=== PATIENT | female | born 1945 | race Caucasian/White ===

== ENCOUNTER 2019-03-17 18:17 | Emergency (ER) | payer MEDICARE, OTHER ==
[2019-03-17] MEDS ORDERED: HYDROcod/ACETAM 5/325 MG TABLET PO STA (18:43)
--- NOTE | 2019-03-17 18:44 | ED Physician Documentation ---
PD HPI LOWER EXT INJURY - Stated complaint Stated Complaint: RT KNEE PAIN - Chief complaint Chief Complaint: Ext Problem - History obtained from History obtained from: Patient - History of Present Illness PD HPI LOW EXT INJURY LOCATION: Other (73-year-old woman visiting from [place], she has a history of a knee problem but she does not remember which side. It was remote. This morning she got up and it felt like something was ripping in her knee and she has anterior and medial right knee pain radiating down to the calf and difficulty walking and flexing the knee. No specific injury.) Review of Systems Constitutional: reports: Reviewed and negative Cardiac: reports: Reviewed and negative Respiratory: reports: Reviewed and negative PD PAST MEDICAL HISTORY - Present Medications Home Medications: Ambulatory Orders Medication Instructions Recorded Confirmed Hydrocodone/Acetaminophen 1 - 2 each PO Q6H PRN #14 tablet 03/17/19 [Hydrocodon-Acetaminophen 5-325] - Allergies Allergies/Adverse Reactions: Allergies Allergy/AdvReac Type Severity Reaction Status Date / Time No Known Drug Allergies Allergy Verified 03/17/19 18:43 PD ED PE NORMAL - Vitals Vital signs reviewed: Yes - General General: Alert and oriented X 3, No acute distress - Extremities Extremities: Other (She is tender over the medial and lateral right knee. There is no knee knee joint effusion. I do not appreciate any ligamentous laxity, but she has difficulty with range of motion especially in flexion. Calf itself is also quite tender on the right. There is no asymmetry.) - Neuro Neuro: Alert and oriented X 3, Normal speech Results - Vitals Vitals: Vital Signs - 24 hr 03/17/19 03/17/19 03/17/19 18:39 19:56 20:25 Temperature 36.4 C L Heart Rate 79 68 Respiratory 16 16 16 Rate Blood Pressure 134/82 H 131/67 H O2 Saturation 100 98 Oxygen O2 Source Room air Procedures - General procedure General procedure: After verbal informed consent including discussion of the potential for infection she requested a steroid injection in the right knee. Medial right knee was prepped with ChloraPrep and a mixture of 5 mL of 1% Marcaine with epinephrine and 1 mL of 40 mg of Kenalog was instilled into the joint with resolution of her pain. Departure - Departure Disposition: 01 Home, Self Care Clinical Impression: Knee pain, right Qualifiers: Chronicity: acute Qualified Code(s): M25.561 - Pain in right knee Bakers cyst Qualifiers: Laterality: right Qualified Code(s): M71.21 - Synovial cyst of popliteal space [Sorenson], right knee Condition: Good Record reviewed to determine appropriate education?: Yes Instructions: ED Cyst Sorenson Prescriptions: Hydrocodone/Acetaminophen [Hydrocodon-Acetaminophen 5-325] 1 - 2 each PO Q6H PRN #14 tablet PRN Reason: pain Comments: You were seen tonight for acute right knee pain. There was no effusion and no evidence of infection. The ultrasound to look for a blood clot was negative since he is been traveling but did show a small Sorenson's cyst, Measuring 1.0 x 1.6 x 0.6 cm. The x-ray of your knee was fairly normal without effusion or fracture, there was some spurring of the medial femoral condyle consistent with mild arthritis. We did an injection of 40 mg Of triamcinolone and 5 mL of Marcaine with epinephrine into the knee joint with improvement in your pain. He can also take the hydrocodone as needed. Follow-up with your doctor on return home. Return for new or worsening symptoms.
--- NOTE | 2019-03-17 20:24 | Ultrasound Report ---
Reason: knee/leg pain, travelling Procedure Date: 03/17/2019 Accession Number: [id number] / [id number] Procedure: US - Duplex Ext Veins Right CPT Code: FULL RESULT: EXAM: RIGHT LOWER EXTREMITY VENOUS ULTRASOUND EXAM DATE: 03/17/2019 07:55 PM. CLINICAL HISTORY: Knee/leg pain, travelling. COMPARISON: None available. TECHNIQUE: Real-time sonographic vascular imaging was performed by the rn lab through the lower extremity utilizing both color-flow and Doppler spectral analysis. Multiple sales representative uniforms static images were saved for review. FINDINGS: Common Femoral Vein (CFV): Normal. CFV-GSV Junction: Normal. Profunda Femoral Vein (PFV): Normal. Femoral Vein (FV) Prox: Normal. Femoral Vein (FV) Mid: Normal. Femoral Vein (FV) Dist: Normal. Popliteal Vein: Normal. Posterior Tibial Veins: Not well seen. Peroneal Veins: Not well seen. Other: There is an anechoic collection in the medial popliteal fossa measuring 1.0 x 1.6 x 0.6 cm. There is also an anechoic collection in the lateral popliteal fossa measuring 0.7 x 1.0 x 0.7 cm. These likely represent small fluid pockets. No evidence of internal vascularity. IMPRESSION: Limited visualization of the infrapopliteal veins. Otherwise no acute right lower extremity deep venous thrombosis. Probable right-sided Sorenson's cyst. An additional fluid collection is seen in the lateral popliteal fossa, which could represent continuation of the Sorenson's cyst or a separate small nonspecific fluid collection. [facility]
--- NOTE | 2019-03-17 20:25 | XRAY Report ---
Reason: knee/leg pain, travelling Procedure Date: 03/17/2019 Accession Number: [id number] / [id number] Procedure: XR - Knee 4 View RT CPT Code: FULL RESULT: EXAM: RIGHT KNEE RADIOGRAPHY EXAM DATE: 03/17/2019 07:56 PM. CLINICAL HISTORY: Knee/leg pain, travelling. COMPARISON: None. TECHNIQUE: 4 views. FINDINGS: Bones: There is mild spurring of the medial femoral condyle. Negative for acute fracture. Joints: Joint space and alignment are preserved. No joint effusion. Soft Tissues: There are mild arterial vascular calcifications. There is mild ossification of the inferior quadriceps tendon. IMPRESSION: 1. No fracture or joint effusion. 2. Mild spurring of the medial femoral condyle. [facility]
[2019-03-17] MEDS ORDERED: HYDROcod/ACET 5/325 Prepack 4 PO STA (20:30)
[2019-03-17] MEDS ORDERED: TRIAMCINOLONE 40 MG/ML VIAL IM STA (20:30)
[2019-03-17] MEDS ORDERED: BUPIVACAINE 0.5%-EPI 1:200000 PF 10 ML VIAL SUBQ STA (20:30)
[2019-03-17 20:31] VITALS: BP 131/67
== END 2019-03-17 21:02 | disposition home or self-care (01) ==
LOC: ED 18:17
DX: M25.561 Pain in right knee (principal); M71.21 Synovial cyst of popliteal space [Baker], right knee
CPT/HCPCS: 20610; 73564; 93971; 99283; 99284; A9270